=== PATIENT | female | born 1965 | race African-American/Black ===

== ENCOUNTER 2022-07-30 13:37 | Observation (INO) ==
[2022-07-30] MEDS ORDERED: ACETAMINOPHEN 325 MG TABLET PO PRN (14:37)
[2022-07-30] MEDS ORDERED: MAGNESIUM SULF RIDER 2 GM/50 ML PREMIX IV PRN (14:37)
[2022-07-30] MEDS ORDERED: POTASSIUM CHLORIDE 20 MEQ TABLET PO PRN (14:37)
[2022-07-30] MEDS ORDERED: POTASSIUM CHLORIDE RIDER 10 MEQ/100 ML PREMIX IV PRN (14:37)
[2022-07-30] MEDS ORDERED: ONDANSETRON 4 MG/2 ML VIAL IV PRN (14:37)
[2022-07-30] MEDS ORDERED: traMADol 50 MG TABLET PO PRN (14:37)
[2022-07-30] MEDS ORDERED: MAGNESIUM SULF RIDER 4 GM/100 ML PREMIX IV PRN (14:37)
[2022-07-30] MEDS ORDERED: hydrALAZINE 20 MG/1 ML VIAL IV PRN (14:41)
[2022-07-30] MEDS ORDERED: BISACODYL 5 MG TABLET PO ONE (15:00)
[2022-07-30 16:27] LABS: Bilirubin,Urine Negative (Negative); Blood, Urine Negative (Negative); Glucose,Urine (UA) Negative (Negative); Ketones,Urine Negative (Negative); Nitrite,Urine Negative (Negative); Protein,Urine Negative (Negative); Urine Appearance Clear (Clear); Urine Color Yellow (Yellow); Urine Urobilinogen 0.2 eU/dL (<2.0)
[2022-07-30 16:29] LABS: Basophils % 0.6 % (0.0-0.8); Eosinophils # 0.1 10*3/uL (0.0-0.87); Eosinophils % 1.3 % (0.00-10.9); Hematocrit 38.9 VOL% (35.7-47.0); Hemoglobin 12.9 GM/DL (12.0-16.0); Immature Granulocytes % 0.2 %; Immature Granulocytes Absolute 0.01 #; Lymphocytes # 1.7 10*3/uL (1.4-4.0); Lymphocytes % 36.3 % (21.3-54.2); Mean Corpuscular HGB Conc 33.2 GM/DL (32-36); Mean Corpuscular Volume 91.3 FL (87-102); Mean Platelet Volume 10.3 FL (9.6-12.0); Monocytes # 0.3 10*3/uL (0.11-0.8); Neutrophils % 54.6 % (38.7-73.9); Platelet Count 165 T/CUMM (130-400); Red Blood Count 4.26 MC/CUMM (3.8-5.5); Red Cell Distribution Width 12.4 % (9.3-17.3); White Blood Count 4.7 T/CUMM (4-12)
[2022-07-30 16:33] LABS: Bacteria,Urine Occasional /HPF (Few); Mucus,Urine Occasional /LPF (Occasional); Squamous Epithelial Cell,Urine Occasional /HPF (0-10)
[2022-07-30 16:50] LABS: Bilirubin,Total 0.4 MG/DL (0.20-1.00); Calcium 8.9 MG/DL (8.5-10.1); Osmolality,Calculated 279.4 MOS/KG (273-304); Potassium 4.4 MMOL/L (3.5-5.1); Total Protein 7.5 G/DL (6.4-8.2)
[2022-07-30] MEDS: amLODIPine 2.5 MG TABLET PO SCH (16:50)
[2022-07-30] MEDS: PANTOPRAZOLE 40 MG TABLET PO SCH (16:50)
[2022-07-30] MEDS ORDERED: POLYETHYLENE GLYCOL POWDER 255 GM BOTTLE PO ONE (18:00)
[2022-07-30] MEDS: DOCUSATE SODIUM 100 MG CAPSULE PO SCH (20:50)
[2022-07-31 04:47] LABS: PT Patient Result 11.2 SECS (10.1-12.1)
[2022-07-31] MEDS ORDERED: POLYETHYLENE GLYCOL POWDER 255 GM BOTTLE PO ONE (05:00)
[2022-07-31] MEDS ORDERED: LACTATED RINGERS 1,000 ML IV SCH (08:00)
[2022-07-31] MEDS: DOCUSATE SODIUM 100 MG CAPSULE PO SCH (09:02)
[2022-07-31] MEDS: amLODIPine 2.5 MG TABLET PO SCH (09:02)
[2022-07-31] MEDS: PANTOPRAZOLE 40 MG TABLET PO SCH (09:02)
[2022-07-31] MEDS ORDERED: propofoL 200 MG/20 ML VIAL IV ONE (13:49)
[2022-07-31] MEDS ORDERED: LIDOCAINE 2% 5 ML VIAL ONE (13:49)
[2022-07-31 17:42] VITALS: BP 122/81
== END 2022-07-31 18:10 | disposition home or self-care (01) ==
LOC: N.2W
PROVIDERS: ADMIT Family Medicine; ATTEND Family Medicine
PROC: COLONBX (2022-07-31 11:20)